=== PATIENT | female | born 1930 | race Caucasian/White ===

== ENCOUNTER 2018-11-06 18:52 | Inpatient (IN) | payer MEDICARE ==
[2018-11-06 19:52] LABS: #Lymphocytes 0.4 thou/uL (1.20-3.40); #Monocytes 0.6 thou/uL (0.11-0.59); #Neutrophils 4.5 thou/uL (1.40-6.50); %Basophils 0.1 % (0.0-1.0); %Eosinophils 0.6 % (0.0-10.0); %Lymphocytes 7.1 % (21.0-51.0); %Monocytes 10.1 % (0.0-10.0); %Neutrophils 82.1 % (42.0-75.0); Hemoglobin 10.5 g/dL (12.0-16.0); Mean Corpuscular HGB CONC 32.1 g/dL (32.0-36.0); Mean Corpuscular Hemoglobin 31.6 pg (27.0-31.0); Mean Corpuscular Volume 98.2 fL (78.0-98.0); Mean Platelet Volume 7.6 fL (7.4-10.4); Platelet Count 147 thou/uL (130-400); Red Blood Cell (RBC) Count 3.31 mill/uL (4.20-5.40); White Blood Cell (WBC) Count 5.5 thou/uL (4.8-10.8)
[2018-11-06 20:17] LABS: ALT (SGPT) 8 U/L (8-55); AST (SGOT) 11 U/L (5-34); Albumin 3.8 g/dL (3.4-4.8); Alkaline Phosphatase 103 U/L (40-150); Anion Gap 15 mmol/L (10-20); BUN (Urea Nitrogen) 25 mg/dL (9.8-20.1); Bilirubin, Total 0.5 mg/dL (0.2-1.2); Calc. Creatinine Clearance 0 mL/min (70-130); Calcium 9.4 mg/dL (7.8-10.44); Carbon Dioxide 31 mmol/L (23-31); Chloride 95 mmol/L (98-107); Estimated GFR-MDRD 15; Globulin 2.9 g/dL (2.4-3.5); Glucose 132 mg/dL (83-110); Protein, Total 6.7 g/dL (6.0-8.3); Sodium 138 mmol/L (136-145)
--- NOTE | 2018-11-06 20:25 | RAD ---
RIGHT KNEE FOUR VIEWS: 11/06/18 HISTORY: Knee pain. COMPARISON: None. FINDINGS: No significant joint effusion. Saturated appearance. Right total knee arthroplasty and total resurfa cing. There is sclerosis of the patella. Bones are demineralized. Mild vascular calcifications. IMPRESSION: No acute abnormality. POS: HOME
[2018-11-06 20:26] LABS: Potassium 2.9 mmol/L (3.5-5.1)
[2018-11-06 20:34] LABS: Bilirubin Small (Negative); Blood, Urine Large (Negative); Glucose, Urine (Dipstick) Negative (Negative); Leukocyte Moderate (Negative); Nitrite Negative (Negative); Protein, Urine (Dipstick) > or equal to 300 mg/dL (Neg-Trace); Urobilinogen 0.2 mg/dL (Less than 2)
[2018-11-06 20:41] LABS: Clarity Cloudy (Clear)
[2018-11-06 20:46] LABS: Bacteria/HPF 4+ HPF (None Seen); RBC/HPF 21-50 HPF (0-3); Squamous Epithelial 0-3 HPF (0-3); WBC/HPF Greater Than 50 HPF (0-3)
[2018-11-06] MEDS ORDERED: cefTRIAXone\\ROCEPHIN 2 GM VIAL ONE ×2 (21:00→21:58)
[2018-11-06] MEDS ORDERED: Acetaminophen 325 MG TAB PO PRN (22:04)
[2018-11-07 00:22] VITALS: BMI 21.2
[2018-11-07] MEDS: HYDROcodone/Acetaminophen 5/325 mg Tablet PO PRN ×4 (00:25→17:22)
--- NOTE | 2018-11-07 01:59 | HP ---
PRIMARY CARE PHYSICIAN: Dr. Ethan Templeton. CHIEF COMPLAINT: Weakness. HISTORY OF PRESENT ILLNESS: This is an 87-year-old female patient with a history of end-stage renal disease, on hemodialysis, who was dialyzed today, presents to the emergency department with worsening weakness and difficulty ambulating. The patient states she is usually able to walk around her house without much difficulty. She typically gets to feeling badly after her dialysis, but today was much worse. She presented to the emergency department for evaluation and was found to have a urinary tract infection. No signs of sepsis, but due to her weakness, poor p.o. intake, she is being admitted for further evaluation and treatment of urinary tract infection and weakness. PAST MEDICAL HISTORY: End-stage renal disease, hypertension, macular degeneration, hypercholesterolemia. PAST SURGICAL HISTORY: Appendectomy, AV fistula in 2015, tonsillectomy, a history of nephrectomy for unknown reasons, history of recurrent urinary tract infections. FAMILY HISTORY: Father with heart disease. Mother with diabetes. SOCIAL HISTORY: She lives at home with her sister who is elderly as well. Family states that she is having a harder time taking care of things at home even with her sister, more difficulty with activities of daily living. REVIEW OF SYSTEMS: As per the history of present illness. CONSTITUTIONAL: She denies any recent fevers, chills, or recent illness. HEENT: Denies headache, visual or hearing changes. CARDIAC: Denies chest pain, shortness of breath, or palpitations. PULMONARY: Denies cough or hemoptysis. GI: Positive nausea, occasional abdominal pain, history of chronic constipation due to chronic narcotic usage for her knee pain. : As per the history of present illness. She has had recent bladder infections over the past years. She denies hematuria. MUSCULOSKELETAL: Chronic knee pain, possibly hip pain as well. MEDICATIONS: Include; 1. Hardin 5/325 q.6 p.r.n. severe pain. 2. Icaps daily. 3. Stool softeners daily. 4. Omeprazole 20 mg daily. 5. RenaPlex-D daily. 6. Doxazosin 8 mg daily. 7. Amlodipine 10 mg daily. ALLERGIES: TO ASPIRIN AND NSAIDS. IMMUNIZATIONS: Pneumovax received. PHYSICAL EXAMINATION: VITAL SIGNS: She is afebrile. Pulse is regular. Respirations are not labored. GENERAL: She is awake and alert. No acute distress. Speech is clear. Mucosa is moist. NECK: Supple. HEART: Regular rate and rhythm. LUNGS: Clear. ABDOMEN: Soft, nontender, and nondistended. EXTREMITIES: With no edema. Scar in her right knee. Painful range of motion of her right knee. Positive for crepitus. Left arm with AV fistula with positive thrill. LABORATORY DATA: White blood cell count 5,500, hemoglobin and hematocrit 10.5 and 32.5 with macrocytic indices, platelets of 147. Sodium 138, potassium 2.9, chloride 95, CO2 of 31, BUN and creatinine 25 and 2.88 with a GFR of 15. Serum glucose of 132, calcium of 9.4, albumin of 3.8. Urinalysis was positive protein, positive blood, positive leukocyte esterase, positive bacteria. Knee x-ray showed the right total knee arthroplasty. Bones are demineralized. No acute finding. ASSESSMENT AND PLAN: This is an 87-year-old female with end-stage renal disease, now with increasing weakness, likely secondary to deconditioning and urinary tract infection. 1. Urinary tract infection. We will continue Rocephin, may switch to oral antibiotics tomorrow. 2. End-stage renal disease. We will continue dialysis as per Dr. Moore. 3. Chronic knee pain. Continue Hardin. We will initiate PT, OT evaluation. 4. Hypertension, appears to be stable on Norvasc and Cardura. 5. Chronic anemia secondary to chronic disease and kidney failure. 6. Hypokalemia. We will replete. 7. Increasing weakness. I will consult Case Management and obtain a rehab consult for placement possibilities. I will discuss further with family. 8. Code status. The patient desires DNR. We will follow through with that. Family agrees to those wishes. Job ID: [id number]
[2018-11-07 06:52] LABS: #Eosinphils 0.1 thou/uL (0.0-0.7); #Lymphocytes 0.6 thou/uL (1.20-3.40); #Monocytes 0.7 thou/uL (0.11-0.59); #Neutrophils 4.2 thou/uL (1.40-6.50); %Basophils 0.4 % (0.0-1.0); %Lymphocytes 11.3 % (21.0-51.0); %Monocytes 12.2 % (0.0-10.0); %Neutrophils 74.1 % (42.0-75.0); Mean Corpuscular HGB CONC 31.1 g/dL (32.0-36.0); Mean Corpuscular Hemoglobin 30.7 pg (27.0-31.0); Mean Corpuscular Volume 98.7 fL (78.0-98.0); Mean Platelet Volume 7.6 fL (7.4-10.4); Platelet Count 147 thou/uL (130-400); RBC Distribution Width 12.9 % (11.5-14.5); Red Blood Cell (RBC) Count 3.28 mill/uL (4.20-5.40); White Blood Cell (WBC) Count 5.7 thou/uL (4.8-10.8)
[2018-11-07 07:12] LABS: ALT (SGPT) Less than 7 U/L (8-55); AST (SGOT) 11 U/L (5-34); Albumin 3.3 g/dL (3.4-4.8); Alkaline Phosphatase 87 U/L (40-150); Anion Gap 13 mmol/L (10-20); BUN (Urea Nitrogen) 29 mg/dL (9.8-20.1); Bilirubin, Total 0.5 mg/dL (0.2-1.2); Calc. Creatinine Clearance 11 mL/min (70-130); Calcium 8.8 mg/dL (7.8-10.44); Carbon Dioxide 30 mmol/L (23-31); Chloride 96 mmol/L (98-107); Estimated GFR-MDRD 13; Globulin 2.4 g/dL (2.4-3.5); Glucose 89 mg/dL (83-110); Potassium 3.1 mmol/L (3.5-5.1); Protein, Total 5.7 g/dL (6.0-8.3); Sodium 136 mmol/L (136-145)
[2018-11-07] MEDS ORDERED: Potassium Chloride 20 MEQ TAB PO SCH (08:00)
[2018-11-07] MEDS: Folic Acid/Vit B Comp W-C PO SCH (08:35)
[2018-11-07] MEDS: Docusate 100 MG CAP PO SCH (08:35)
[2018-11-07] MEDS: Amlodipine 10 MG TAB PO SCH (08:35)
[2018-11-07] MEDS: Doxazosin Mesylate 4 MG TAB PO SCH (09:55)
--- NOTE | 2018-11-07 10:32 | CON ---
DATE OF CONSULTATION: HISTORY OF PRESENT ILLNESS: Ms. Willis is an 87-year-old white female with ESRD and was admitted for generalized malaise/weakness. After dialysis on that day, the patient lost energy and could hardly move about. For this reason, she was sent to the ER and was admitted for further management. Consultation for rehab is being considered at the present time. We are now being consulted for maintenance hemodialysis. REVIEW OF SYSTEMS: Positive for generalized malaise. Positive for chronic joint pains. No nausea. No vomiting. No diarrhea. No hematochezia. No melena. No hematemesis. No headache. No diplopia. No syncopal episode. No fever or chills. No shortness of breath or chest pain. MEDICATIONS: Currently on; 1. Amlodipine 10 mg daily. 2. Docusate 100 mg p.o. daily. 3. Cardura 8 mg at bedtime. 4. Hydrocodone 5/325 q.6 p.r.n. 5. Protonix 40 mg tablet once a day. 6. Status post KCl. PAST MEDICAL HISTORY: 1. DJD. 2. 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 3. Long-standing hypertension, status post gastritis. 4. History of macular degeneration. PAST SURGICAL HISTORY: Status post AV fistula placement, status post cuffed hemodialysis catheter placement, status post appendectomy, status post upper GI endoscopy, status post right knee replacement, and status post right nephrectomy. SOCIAL HISTORY: The patient lives in [place] with her sister. She is , 2 children. No history of smoking. No alcohol use. No IV drug abuse. Status post blood transfusion. 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 Education, 7th grade. ALLERGIES: NO KNOWN DRUG ALLERGIES. TRAUMA: None. IMMUNIZATIONS: Up-to-date. HOSPITALIZATIONS: Please see past medical history. FAMILY HISTORY: No family history of ESRD. PHYSICAL EXAMINATION: VITAL SIGNS: Blood pressure is noted at 113/65, heart rate 68, respiratory rate 14, temperature 97.8, and pulse ox 93%. GENERAL: Noted to be awake, alert, supine, lethargic, not in overt distress. SKIN: Decreased turgor. HEENT: Pinkish conjunctivae. Anicteric sclerae. NECK: No neck mass. No carotid bruits. No JVD. CHEST: No deformities. LUNGS: Clear breath sounds. No wheezing. No crackles. HEART: Normal sinus rhythm. No murmurs. No gallops. No rubs. ABDOMEN: Globular, soft, and nontender. No masses. EXTREMITIES: No edema. No deformities. MEDICATIONS: Medications of November 07, 2018, reviewed. LABORATORY DATA: Laboratories of November 07, 2018; white count 5.7, hemoglobin 10. Sodium 136, potassium 3.1, chloride 96, carbon dioxide 30, BUN 29, creatinine 3.26, calcium 8.8, AST 11, ALT 7, and albumin 3.3. ASSESSMENT AND PLAN: 1. End-stage renale disease, stable. We will continue current hemodialysis regimen of Monday, , and Monday. Review of the last Kt/V suggest that the patient is adequately dialyzed with the current dialysis regimen. Agree with current management. 2. Generalized malaise - for rehab placement/consultation. I agree with current management. Job ID: [id number]
[2018-11-07] MEDS ORDERED: Magnesium 2 GM/50 ML 2 GM in Premix Bag 1 BAG IVPB SCH (14:00)
[2018-11-07] MEDS ORDERED: Polyethylene Glycol 3350 17 GM Packet PO PRN (14:59)
[2018-11-07] MEDS ORDERED: Polyethylene Glycol 3350 17 GM Packet PO SCH (15:00)
--- NOTE | 2018-11-07 16:01 | RAD ---
Exam: Chest 2 views HISTORY:Crackles Comparison: 04/25/2018 FINDINGS: Lungs: Hyperinflated Cardiac silhouette:Enlarged. Retrocardiac air density is indicative of a moderate to large hiatal her gavin Pulmonary vessels: Normal Pleural Spaces: Clear Pneumothorax: None There is vascular calcification. Ectasia and tortuosity of the aorta. Osseous abnormalities: None of acuity. IMPRESSION: COPD Moderate to large hiatal hernia
[2018-11-07] MEDS: Potassium Chloride 20 MEQ TAB PO SCH (17:22)
[2018-11-07] MEDS: cefTRIAXone\\ROCEPHIN 2 GM in Sodium Chloride 0.9% 100 ML IVPB SCH (20:35)
--- NOTE | 2018-11-08 04:17 | PRG ---
DATE OF SERVICE: 11/07/2018 HISTORY OF PRESENT ILLNESS: Patient remains somewhat fatigued, makes minimal urine, she is on hemodialysis and does have urinary frequency and dysuria when she does produce small amount of urine per day. Verbalized understanding regarding UTI findings. Tolerated Rocephin well so far. Patient has hypokalemia, but does not report any palpitations or lower extremity cramping. Currently 1/2 cultures shows staphylococcal, identification pending. Urine culture currently showing E coli. Presumed sensitivities pending. Patient denies significant cough, however, does report constipation. Has not had a bowel movement several days. Still passing flatus. Decreased appetite. No emesis. Review of vital signs; temperature of 98.3, pulse of 61, respiratory rate 16, oxygen saturation of 95% on room air, and blood pressure 126/65. LABORATORY WORK: White blood cell count of 5.7, hemoglobin 10.0. Potassium on admit of 2.9, slightly improved to 3.1; creatinine of 3.2; glucose of 89. PHYSICAL EXAMINATION: GENERAL: Patient is alert and oriented. No acute distress. HEENT: Head is normocephalic and atraumatic. Extraocular movements are intact. Sclerae white. Oral mucosa is moist. NECK: Supple. HEART: Regular rate and rhythm at the time of my exam. Systolic murmur is auscultated. LUNGS: With bilateral crackles to bases, could represent mucous plugging. No rhonchi, rales, or wheezes. Patient with good air movement. Good chest expansion. ABDOMEN: Soft, nontender. Positive bowel sounds throughout. EXTREMITIES: Lower extremities, without cyanosis or edema. ASSESSMENT/PLAN: End-stage renal disease, on hemodialysis; bacteremia; urinary tract infection; severe hypokalemia, transitioning the patient to inpatient status; anemia of chronic disease, continued on dialysis, looking to seek for placement given patient's downturn in energy and mobility. Working with therapy services. Clinicals are pending with Case Management. We will continue to replace potassium and follow up on lab work in a.m. We will follow up on identification. At this point in time, we will continue Rocephin. Unclear if Staph is contaminant yet. Patient remains afebrile otherwise. If any fevers occur, we will escalate antibiotic coverage. Hope to get placement prior to weekend. Initiated laxative, MiraLAX regarding patient's constipation. Job ID: [id number]
[2018-11-08 07:04] LABS: ALT (SGPT) 8 U/L (8-55); AST (SGOT) 12 U/L (5-34); Albumin 3.1 g/dL (3.4-4.8); Alkaline Phosphatase 82 U/L (40-150); Anion Gap 15 mmol/L (10-20); BUN (Urea Nitrogen) 47 mg/dL (9.8-20.1); Bilirubin, Total 0.4 mg/dL (0.2-1.2); Calc. Creatinine Clearance 9 mL/min (70-130); Calcium 8.7 mg/dL (7.8-10.44); Carbon Dioxide 28 mmol/L (23-31); Chloride 99 mmol/L (98-107); Estimated GFR-MDRD 11; Globulin 2.6 g/dL (2.4-3.5); Glucose 88 mg/dL (83-110); Potassium 3.5 mmol/L (3.5-5.1); Protein, Total 5.7 g/dL (6.0-8.3); Sodium 138 mmol/L (136-145)
[2018-11-08] MEDS ORDERED: Glycerin Adult Supp. (12 ct jar) PR SCH (07:45)
[2018-11-08] MEDS: HYDROcodone/Acetaminophen 5/325 mg Tablet PO PRN ×4 (08:03→21:23)
[2018-11-08] MEDS ORDERED: EPOETIN ALFA-EPBX (ESRD) 4,000 UNIT/ML VIAL SC SCH (08:30)
--- NOTE | 2018-11-08 08:53 | PRG ---
DATE OF SERVICE: 11/08/2018 SERVICE: Renal Medicine. SUBJECTIVE: Ms. Willis is an 87-year-old white female with ESRD, was admitted for generalized malaise. This morning, she is undergoing dialysis. She is requesting to shorten her treatment. She is complaining of diffuse joint pains. The patient denies any chest pain or shortness of breath. OBJECTIVE: VITAL SIGNS: Blood pressure 101/54, heart rate 60, respiratory rate 16, temperature 98, and pulse ox 95%. GENERAL: Awake, alert, comfortable, not in overt distress. SKIN: Adequate turgor. HEENT: Slightly pale conjunctivae. Anicteric sclerae. NECK: No neck mass. No carotid bruits. No JVD. CHEST: No deformities. LUNGS: Clear breath sounds. HEART: Normal sinus rhythm. No murmur. No gallops. No rubs. ABDOMEN: Globular, soft, and nontender. No masses. EXTREMITIES: No edema. No deformities. MEDICATIONS: Medications of November 08, 2018, was reviewed. LABORATORY DATA: Laboratories of November 07, 2018, hemoglobin 10. On November 08, 2018; sodium 138, potassium 3.5, chloride 99, carbon dioxide 28, BUN 47, creatinine 3.75, calcium 8.7, and albumin 3.1. ASSESSMENT AND PLAN: 1. Hypoalbuminemia. Start Nepro one can b.i.d. 2. Borderline anemia - since the patient is symptomatic, we will restart Epogen 7500 units subcu every week. 3. End-stage renal disease, stable, continuing Monday, , and Monday dialysis regimen. Fluid removal only as tolerated by the patient. No changes will be made with the current dialysis regimen. Job ID: [id number]
[2018-11-08] MEDS: Folic Acid/Vit B Comp W-C PO SCH (11:01)
[2018-11-08] MEDS: Docusate 100 MG CAP PO SCH (11:02)
[2018-11-08] MEDS: Potassium Chloride 20 MEQ TAB PO SCH (11:02)
[2018-11-08] MEDS: Polyethylene Glycol 3350 17 GM Packet PO SCH ×2 (11:03→21:22)
[2018-11-08] MEDS: Amlodipine 10 MG TAB PO SCH (12:26)
[2018-11-08] MEDS: Doxazosin Mesylate 4 MG TAB PO SCH (12:27)
--- NOTE | 2018-11-08 18:17 | PRG ---
DATE OF SERVICE: 11/08/2018 HISTORY OF PRESENT ILLNESS: The patient states she has some worsening constipation, not responsive to MiraLAX and glycerin suppository x1. Still passing flatus. Verbalizes understanding regarding gram-positive bacteremia. Has no fevers. Simply feels fatigued, however, she is continued on hemodialysis if not feel good on days of dialysis. Continued deconditioning and anemia of chronic disease remain present. The patient's potassium is slowly improving. The patient denies any chest pain or extremity cramps. Tolerating Rocephin for UTI well. OBJECTIVE: VITAL SIGNS: Temperature of 97.8, pulse of 84, respiratory rate of 16, oxygen saturation 96% on room air, and blood pressure of 103/59. GENERAL: The patient is alert and oriented, in no acute distress. HEENT: Head is normocephalic and atraumatic. Extraocular movements are intact. Sclerae white. Oral mucosa is moist. HEART: Systolic murmurs heard throughout. LUNGS: Clear to auscultation bilaterally. No rubs or wheezes. ABDOMEN: Soft and nontender with positive bowel sounds throughout. EXTREMITIES: Lower extremities without cyanosis or edema. The patient is alert and oriented x3. No focal deficits. Speech is normal. LABORATORY DATA: White blood cell count of 5.7, hemoglobin 10.0. Potassium 3.5, sodium 138, creatinine of 3.75. AST 12, ALT of 8. Microbiology showed E. coli sensitive to cephalosporins, resistant to Bactrim and quinolones, coagulase-negative Staph identification still pending. ASSESSMENT AND PLAN: Severe hypokalemia, currently resolved. End-stage renal disease, on hemodialysis, continuing dialysis. Gram-positive bacteremia, awaiting cultures. Urinary tract infection, Escherichia coli sensitive to cephalosporins, continuing Rocephin. Constipation, increasing MiraLAX twice a day and continuing glycerin suppositories p.r.n. The patient's anemia of chronic disease is holding steady. Deconditioning, currently awaiting inpatient rehab placement. We will follow up once placement has been achieved and discharge. Job ID: [id number]
[2018-11-08] MEDS: cefTRIAXone\\ROCEPHIN 2 GM in Sodium Chloride 0.9% 100 ML IVPB SCH (21:22)
[2018-11-09] MEDS: HYDROcodone/Acetaminophen 5/325 mg Tablet PO PRN ×4 (01:47→22:19)
[2018-11-09] MEDS: Docusate 100 MG CAP PO SCH (08:25)
[2018-11-09] MEDS: Amlodipine 10 MG TAB PO SCH (08:25)
[2018-11-09] MEDS: Polyethylene Glycol 3350 17 GM Packet PO SCH (08:25)
[2018-11-09] MEDS: Folic Acid/Vit B Comp W-C PO SCH (08:25)
[2018-11-09] MEDS: Doxazosin Mesylate 4 MG TAB PO SCH (08:25)
--- NOTE | 2018-11-09 18:00 | PRG ---
DATE OF SERVICE: 11/09/2018 HISTORY OF PRESENT ILLNESS: The patient successfully had several bowel movements following suppository and MiraLAX as good relief of abdomen pressure. The patient was not having emesis. Remains with severe deconditioning, only able to take a couple of steps before. The patient had to sit back down with physical therapy, has rehab placement pending being treated for UTI, E. coli with Rocephin. The patient has baseline of end-stage renal disease, on hemodialysis Monday, , and Monday, currently stable. The patient's potassium has been well replaced. No chest pain is reported including with the patient's anemia of chronic disease. No shortness of breath at baseline. No fevers reported with gram-positive bacteremia, however, unable to get identified with current culture reports. OBJECTIVE: VITAL SIGNS: Temperature 97.8, pulse of 70, respiratory rate of 18, oxygen saturation 96% on room air, and blood pressure 100/62. GENERAL: The patient is alert and oriented, in no acute distress. HEENT: Head is normocephalic and atraumatic. Extraocular movements are intact. Sclerae white. Oral mucosa is moist. NECK: Supple. HEART: Regular rate and rhythm at time of exam. No murmurs auscultated. LUNGS: Clear to auscultation bilaterally. No rubs or wheezes. ABDOMEN: Soft and nontender. Positive bowel sounds throughout. EXTREMITIES: Lower extremities without cyanosis or edema. The patient with 3/5 to 4/5 strength on extremities tested. NEUROLOGIC: However, fatigues easily. Alert and oriented x3. No focal deficits. Speech is normal. ASSESSMENT AND PLAN: End-stage renal disease, on hemodialysis. Deconditioning, gram positive bacteremia. Urinary tract infection secondary to Escherichia coli. Constipation, resolved. Anemia of chronic disease, remains currently on Epogen. Waiting placement. Continuing dialysis. Continued on antibiotics. We will follow up repeat blood culture if any fevers. Job ID: [id number]
[2018-11-09] MEDS: cefTRIAXone\\ROCEPHIN 2 GM in Sodium Chloride 0.9% 100 ML IVPB SCH (20:23)
[2018-11-10] MEDS: HYDROcodone/Acetaminophen 5/325 mg Tablet PO PRN ×4 (04:18→23:37)
[2018-11-10 05:21] LABS: #Basophils 0.1 thou/uL (0.0-0.2); #Eosinphils 0.4 thou/uL (0.0-0.7); #Lymphocytes 1.5 thou/uL (1.20-3.40); #Monocytes 0.5 thou/uL (0.11-0.59); #Neutrophils 2.6 thou/uL (1.40-6.50); %Eosinophils 7.9 % (0.0-10.0); %Lymphocytes 30.1 % (21.0-51.0); %Monocytes 9.6 % (0.0-10.0); %Neutrophils 51.3 % (42.0-75.0); Hemoglobin 9.8 g/dL (12.0-16.0); Mean Corpuscular HGB CONC 31.5 g/dL (32.0-36.0); Mean Corpuscular Hemoglobin 30.8 pg (27.0-31.0); Mean Corpuscular Volume 97.7 fL (78.0-98.0); Mean Platelet Volume 7.2 fL (7.4-10.4); Platelet Count 180 thou/uL (130-400); RBC Distribution Width 12.8 % (11.5-14.5); Red Blood Cell (RBC) Count 3.17 mill/uL (4.20-5.40); White Blood Cell (WBC) Count 5.1 thou/uL (4.8-10.8)
[2018-11-10 05:39] LABS: ALT (SGPT) 10 U/L (8-55); AST (SGOT) 14 U/L (5-34); Albumin 3.1 g/dL (3.4-4.8); Alkaline Phosphatase 80 U/L (40-150); Anion Gap 11 mmol/L (10-20); BUN (Urea Nitrogen) 39 mg/dL (9.8-20.1); Bilirubin, Total 0.4 mg/dL (0.2-1.2); Calc. Creatinine Clearance 11 mL/min (70-130); Calcium 8.8 mg/dL (7.8-10.44); Carbon Dioxide 30 mmol/L (23-31); Chloride 99 mmol/L (98-107); Estimated GFR-MDRD 14; Globulin 2.3 g/dL (2.4-3.5); Glucose 84 mg/dL (83-110); Potassium 4.1 mmol/L (3.5-5.1); Protein, Total 5.4 g/dL (6.0-8.3); Sodium 136 mmol/L (136-145)
[2018-11-10] MEDS: Docusate 100 MG CAP PO SCH (08:49)
[2018-11-10] MEDS: Folic Acid/Vit B Comp W-C PO SCH (08:50)
--- NOTE | 2018-11-10 10:00 | PRG ---
DATE OF SERVICE: 11/10/2018 SUBJECTIVE: Ms. Willis is an 87-year-old white female with ESRD and admitted for UTI/E coli. Currently, on IV antibiotics. No new complaints today. She is undergoing hemodialysis. Fluid removal is being tolerated. No complaints of chest pain or shortness of breath. She feels better. OBJECTIVE: VITAL SIGNS: Blood pressure 111/62, heart rate 67, respiratory rate 18, temperature 97.5, and pulse ox 95%. GENERAL: Awake, alert, and comfortable, not in overt distress. SKIN: Adequate turgor. HEENT: Slightly pale conjunctivae. Anicteric sclerae. NECK: No neck mass. No carotid bruits. No JVD. CHEST: No deformities. LUNGS: Clear breath sounds. No wheezing. No crackles. HEART: Normal sinus rhythm. No murmur. No gallops. No rubs. ABDOMEN: Globular, soft, and nontender. No masses. EXTREMITIES: No edema. No deformities. MEDICATIONS: Medications of November 10, 2018 was reviewed. LABORATORY DATA: Laboratories of November 10, 2018; white count 5.1 and hemoglobin 9.8. Sodium 136, potassium 4.1, chloride 99, carbon dioxide 30, BUN 39, creatinine 3.1, and calcium 8.8. AST 14 and ALT 10. ASSESSMENT AND PLAN: 1. End-stage renal disease, stable, tolerating current hemodialysis regimen. Continue dialysis for Monday, , and Monday. Fluid removal only as tolerated. 2. Anemia-on weekly Epogen. 3. Urinary tract infection, currently on IV antibiotics. Overall, the patient is doing well. Agree with current management. Job ID: [id number]
[2018-11-10] MEDS: Doxazosin Mesylate 4 MG TAB PO SCH (16:56)
[2018-11-10] MEDS: Amlodipine 10 MG TAB PO SCH (16:56)
[2018-11-10] MEDS: cefTRIAXone\\ROCEPHIN 2 GM in Sodium Chloride 0.9% 100 ML IVPB SCH (20:19)
[2018-11-11] MEDS: HYDROcodone/Acetaminophen 5/325 mg Tablet PO PRN ×3 (04:16→18:39)
[2018-11-11] MEDS: Docusate 100 MG CAP PO SCH (08:35)
[2018-11-11] MEDS: Doxazosin Mesylate 4 MG TAB PO SCH (08:35)
[2018-11-11] MEDS: Amlodipine 10 MG TAB PO SCH (08:36)
[2018-11-11] MEDS: Folic Acid/Vit B Comp W-C PO SCH (08:37)
--- NOTE | 2018-11-11 10:45 | PRG ---
DATE OF SERVICE: 11/11/2018 SUBJECTIVE: Today, she has no complaints. OBJECTIVE: VITAL SIGNS: She is afebrile. BP is 116/66 and pulse 63. Exam is essentially unchanged. NECK: No JVD. No bruits in her neck. LUNGS: Clear to auscultation bilaterally. HEART: S1 and S2 with no rubs, murmurs, or gallops. ABDOMEN: Soft and nontender. No masses. LABORATORY DATA: No new labs for 11/11. PLAN: Continue IV antibiotics. She is going to stay in the hospital. Dr. Gomez will be back tomorrow. Eventually, she will be able to be discharged. Job ID: [id number]
--- NOTE | 2018-11-11 10:49 | PRG ---
DATE OF SERVICE: 11/10/2018 SUBJECTIVE: Ms. Willis is an 87-year-old female, patient of Dr. Gomez. On weekend coverage, I am seeing the patient, who earlier was unavailable as she was at dialysis. She is admitted for an E coli urinary tract infection, on antibiotics, a little bit weak after dialysis, but otherwise feeling better than when she came into the hospital. OBJECTIVE: VITAL SIGNS: Stable. She is afebrile. Blood pressure is 111/62. GENERAL: She is awake, alert, and comfortable. No acute distress. NECK: Supple. No JVD. No bruits. No thyromegaly. LUNGS: Clear to auscultation. No rales, rhonchi, or wheezes. HEART: S1 and S2. No rubs, murmurs, or gallops, ABDOMEN: Soft, nontender. Bowel sounds are hypoactive. LABORATORY DATA: White count is 5.1, hemoglobin is 10 and 30. Sodium 136, potassium 4.1, chloride 99, bicarb 30, BUN 39, and creatinine 3.1. ASSESSMENT: Escherichia coli urinary tract infection. We will continue on IV antibiotics. She has end-stage renal disease, currently on hemodialysis, Dr. Oscar abel. Her anemia is essentially stable. She is receiving Epogen weekly injections for that. Job ID: [id number]
[2018-11-11] MEDS: cefTRIAXone\\ROCEPHIN 2 GM in Sodium Chloride 0.9% 100 ML IVPB SCH (20:31)
[2018-11-12] MEDS: HYDROcodone/Acetaminophen 5/325 mg Tablet PO PRN ×2 (04:28→13:01)
[2018-11-12] MEDS: Amlodipine 10 MG TAB PO SCH (08:08)
[2018-11-12] MEDS: Folic Acid/Vit B Comp W-C PO SCH (08:08)
[2018-11-12] MEDS: Docusate 100 MG CAP PO SCH (08:10)
[2018-11-12] MEDS: Doxazosin Mesylate 4 MG TAB PO SCH (08:10)
--- NOTE | 2018-11-12 08:44 | PRG ---
DATE OF SERVICE: 11/12/2018 SUBJECTIVE: Ms. Willis is resting well today. She has no further complaints. OBJECTIVE: VITAL SIGNS: Temperature 97.5, pulse 56, respirations 16, O2 sats 95%, and blood pressure 104/60. LUNGS: Clear to auscultation. HEART: Reveals a regular rate and rhythm without murmurs, gallops, or rubs. ABDOMEN: Soft and nontender. Bowel sounds are present and active. No hepatosplenomegaly is noted. LABORATORY DATA: Urine culture is positive for E coli. Blood cultures positive for coagulase-negative Staphylococcus, which is felt to be a contaminant. IMPRESSION: The patient has had urinary tract infections. She has generalized weakness. PLAN: The patient in my opinion can be discharged soon. There is some concern about whether she should be placed in rehab. We will try to find this out. Job ID: [id number]
[2018-11-12 15:19] VITALS: BP 103/56; TEMP 98.2
[2018-11-12] MEDS ORDERED: Nitrofurantoin Monohyd/M-Cryst 100 MG CAP PO SCH (21:00)
== END 2018-11-12 18:45 | DRG 689 ==
LOC: ERS 18:52 → SJJU 22:52 → OBSVTOIN 11-07 13:49
PROVIDERS: ADMIT Family Medicine; ATTEND Family Medicine
PROC: 5A1D70Z Performance of Urinary Filtration, Intermittent, Less than 6 Hours Per Day (ICD-10-PCS; principal; 2018-11-10)
PROC: 5A1D70Z Performance of Urinary Filtration, Intermittent, Less than 6 Hours Per Day (ICD-10-PCS; 2018-11-10)
DX: N39.0 Urinary tract infection, site not specified (principal); N18.6 End stage renal disease; I12.0 Hypertensive chronic kidney disease with stage 5 chronic kidney disease or end stage renal disease; M25.561 Pain in right knee; G89.29 Other chronic pain; D63.1 Anemia in chronic kidney disease; Z66 Do not resuscitate; E87.6 Hypokalemia; K59.03 Drug induced constipation; H35.30 Unspecified macular degeneration; T40.2X5A Adverse effect of other opioids, initial encounter; Z96.652 Presence of left artificial knee joint; E88.09 Other disorders of plasma-protein metabolism, not elsewhere classified; B96.20 Unspecified Escherichia coli [E. coli] as the cause of diseases classified elsewhere; Z99.2 Dependence on renal dialysis; Z90.49 Acquired absence of other specified parts of digestive tract; Z90.89 Acquired absence of other organs; Z79.899 Other long term (current) drug therapy; Z88.6 Allergy status to analgesic agent; Z88.8 Allergy status to other drugs, medicaments and biological substances; Z87.440 Personal history of urinary (tract) infections
CPT/HCPCS: 36415; 51701; 71046; 80053; 81003; 81015; 85025; 87040; 87077; 87086; 87149; 87186; 96365; A4353; J0696; J3475; J3490; Q5105

== ENCOUNTER 2019-05-15 07:07 | Day surgery (SDC) | payer MEDICARE ==
[2019-05-14 10:55] VITALS: BMI 20.2
--- NOTE | 2019-05-14 12:30 | HP ---
HISTORY OF PRESENT ILLNESS: Rika Willis is an 88-year-old, dialyzes at [facility] Monday, , and Monday. She is accompanied by her daughter and her sister. The patient has had a right breast biopsy upper midline for benign disease. She has developed a left breast mass. This was found by her daughter during helping her bath. The patient had a mammogram performed at [facility] in [place] on 04/08/2019. This is unremarkable with benign microcalcifications, but did have a concerning suspicious mass of left breast at 12 o'clock, 4 cm. FAMILY HISTORY: Significant that her sister had breast cancer. She underwent treatment in [place]. Otherwise family history noncontributory. ALLERGIES: NONE. SOCIAL HISTORY: Tobacco, none. Alcohol, none. PAST SURGICAL HISTORY: Nephrectomy right 1973, dialysis access 2014 that I performed a dialysis catheter, left arm fistula and subsequent 2014 basilic vein transposition fistula. She had appendectomy at younger age. She had an EGD in the past. Has never had a colonoscopy. MEDICATIONS: Colace, Prilosec, prednisolone eyedrops, calcium acetate, amlodipine 2.5 mg daily, doxazosin 8 mg once a day, and hydrocodone p.r.n. pain 5/325 as noted above. PAST MEDICAL HISTORY: End-stage renal disease, on maintenance dialysis Monday, , and Monday, followed by Dr. Moore; hypertension; elevated cholesterol; macular degeneration. REVIEW OF SYSTEMS: Ten-point noncontributory otherwise. PHYSICAL EXAMINATION: VITAL SIGNS: Blood pressure 129/59, pulse 76, temperature 98.6 degrees, weight 138 pounds and height 72 inches. HEAD, EARS, EYES, NOSE AND THROAT: Unremarkable. LUNGS: Clear to auscultation. CARDIAC: Regular rate and rhythm without murmur or gallop. ABDOMEN: Soft and nontender. EXTREMITIES: Mild edema of lower extremities. Left arm upper arm basilic vein transposition fistula good thrill and bruit. AXILLA: Bilaterally without masses, without lymphadenopathy. BREASTS: Right breast, nipple and areola are normal without nipple retraction and without masses. Left breast reveals nipple retraction and a 4 cm mobile firm slightly irregular mass, upper midline, left breast. ASSESSMENT/PLAN: 1. Left breast mass, suspicious for malignancy. After informed consent, core biopsies and alcohol prep performed in the office. She will return to see me later this week for biopsy results. We will obtain appointment with Oncology for further evaluation and discussion. We will present her to the Cancer Clinic. Await hormone receptors and biopsy reports. 2. End-stage renal disease, on maintenance dialysis. 3. Hypertension. 4. Elevated cholesterol. Job ID: [id number]
--- NOTE | 2019-05-14 12:32 | HP ---
HISTORY OF PRESENT ILLNESS: Rika Willis is an 88-year-old female, dialyzed Monday, , Monday at [facility]. She has developed a large left breast mass, upper outer quadrant distorting nipple areola somewhat, undergoing biopsy revealing NM receptor positive, HER-2 negative, Ki-67 low 11.9%, estrogen receptor positive, seen by Dr. Storm. Options given and she prefers left mastectomy planning the week after next. Family understands risks and benefits. We will plan this as an outpatient. MEDICATIONS: 1. Stool softeners. 2. Omeprazole. 3. Calcium acetate. 4. Amlodipine 2.5 mg daily. 5. Doxazosin 8 mg daily. 6. Hydrocodone 5 p.r.n. PAST MEDICAL HISTORY: End-stage renal disease, on maintenance dialysis Monday, , Monday, [facility], history of nephrectomy, hypertension, elevated cholesterol, macular degeneration. PAST SURGICAL HISTORY: Appendectomy, nephrectomy, tonsillectomy, AV fistula, hemodialysis catheter, 09/17/2014, left arm fistula, left arm October 2014, left breast biopsy recently, April 08, 2019. FAMILY HISTORY: Heart disease, otherwise noncontributory. The patient is ambulatory, independent. Family is with her. REVIEW OF SYSTEMS: Noncontributory. TOBACCO: None. ALCOHOL: None. PHYSICAL EXAMINATION: VITAL SIGNS: Weight 133 pounds, height 72 inches, blood pressure 113/54, pulse 63, temperature 99.3 degrees. HEAD, EARS, EYES, NOSE, AND THROAT: Unremarkable. LUNGS: Clear to auscultation. CARDIAC: Regular rate and rhythm. No murmur or gallop. ABDOMEN: Soft and nontender. EXTREMITIES: Unremarkable. Left upper arm dialysis fistula. Good thrill and bruit. BREASTS: Left breast mass as described, 4 cm, mobile. ASSESSMENT AND PLAN: Left breast cancer. PLAN: Mastectomy outpatient, lymphoscintigraphy of sentinel node. They understand the risks and benefits and consents. Job ID: [id number]
[2019-05-15] MEDS ORDERED: Famotidine/PF 20 mg/2ml Vial ONE (08:15)
[2019-05-15] MEDS ORDERED: Ondansetron PF 4 MG/2 ML Vial ONE ×3 (08:15→12:34)
[2019-05-15] MEDS ORDERED: Fentanyl 100 MCG/2 ML VIAL ONE ×3 (08:15→11:27)
[2019-05-15] MEDS ORDERED: Lidocaine 1% w/Epinephrine 1:100K 20 ML VIAL ONE (08:16)
[2019-05-15] MEDS ORDERED: Isosulfan Blue 50 MG/5 ML VIAL ONE (08:16)
[2019-05-15] MEDS ORDERED: Bupivacaine PF 0.5% 30 ML VIAL ONE (08:16)
[2019-05-15] MEDS ORDERED: Acetaminophen 500 MG TAB ONE (08:55)
[2019-05-15] MEDS ORDERED: Ketorolac Tromethamine 30 MG/ML VIAL ONE (08:55)
[2019-05-15 09:03] LABS: #Eosinphils 0.1 thou/uL (0.0-0.7); #Lymphocytes 0.8 thou/uL (1.20-3.40); #Monocytes 0.3 thou/uL (0.11-0.59); #Neutrophils 4.1 thou/uL (1.40-6.50); %Basophils 0.6 % (0.0-1.0); %Eosinophils 2.5 % (0.0-10.0); %Lymphocytes 15.2 % (21.0-51.0); %Neutrophils 75.7 % (42.0-75.0); Hemoglobin 11.1 g/dL (12.0-16.0); Mean Corpuscular HGB CONC 31.6 g/dL (32.0-36.0); Mean Corpuscular Hemoglobin 31.5 pg (27.0-31.0); Mean Corpuscular Volume 99.4 fL (78.0-98.0); Mean Platelet Volume 8.5 fL (7.4-10.4); Platelet Count 150 thou/uL (130-400); RBC Distribution Width 13.8 % (11.5-14.5); Red Blood Cell (RBC) Count 3.54 mill/uL (4.20-5.40); White Blood Cell (WBC) Count 5.4 thou/uL (4.8-10.8)
[2019-05-15 09:16] LABS: Anion Gap 16 mmol/L (10-20); BUN (Urea Nitrogen) 44 mg/dL (9.8-20.1); Calc. Creatinine Clearance 11 mL/min (70-130); Calcium 9.2 mg/dL (7.8-10.44); Carbon Dioxide 25 mmol/L (23-31); Chloride 102 mmol/L (98-107); Estimated GFR-MDRD 13; Glucose 100 mg/dL (83-110); Potassium 3.8 mmol/L (3.5-5.1); Sodium 139 mmol/L (136-145)
--- NOTE | 2019-05-15 10:13 | NM ---
LYMPHOSCINTIGRAPHY: INDICATIONS: Malignant neoplasm, left breast, lymphoid and areolar. The patient presents for lymphoscintigraphy prior to surgery. TECHNIQUE: Sulfur colloid 100 mcg was injected subcutaneously in the periareolar region at the 12 o'clock, 3 o'c lock, 6 o'clock and 9 o'clock positions. FINDINGS: Subsequent imaging after massage at 15 minutes revealed activity in the periareolar region, at the si te of the injection. A sentinel lymph node shows activity in the left axilla. There is another smaller lymph node in the l eft axilla, producing less activity. The most prominent node is marked with a skin marker. IMPRESSION: [place] node identification with lymphoscintigraphy. POS: ANDRES
--- NOTE | 2019-05-15 10:23 | RAD ---
CHEST ONE VIEW: HISTORY: Preop. COMPARISON: 11/07/2018 FINDINGS: The lungs are hyperinflated. There is abnormal notching along the inferior margin of the right ga l neck. No confluent air space consolidation, pneumothorax or effusion. The aortic contour is ectatic . Moderate sliding hiatal hernia. IMPRESSION: 1. Chronic findings. No acute abnormality. 2. Abnormal notching in the right humeral neck. Dedicated shoulder radiographs are recommended. POS: [facility]
[2019-05-15] MEDS ORDERED: HYDROcodone/Acetaminophen 5/325 mg Tablet ONE (11:26)
[2019-05-15] MEDS ORDERED: ePHEDrine/0.9% NaCl/PF SYRINGE 50 mg/10 ml ONE (12:34)
[2019-05-15] MEDS ORDERED: Metoclopramide HCl 10 MG/2 ML VIAL ONE (12:34)
[2019-05-15] MEDS ORDERED: Dexamethasone 20 MG/5 ML VIAL ONE (12:34)
[2019-05-15] MEDS ORDERED: Lidocaine 1% PF 5 ML VIAL ONE (12:34)
[2019-05-15] MEDS ORDERED: PROPOFOL 200 MG/20 ML VIAL ONE (12:34)
--- NOTE | 2019-05-15 14:20 | OP ---
DATE OF PROCEDURE: 05/15/2019 PREOPERATIVE DIAGNOSES: Left breast cancer, end-stage renal disease. POSTOPERATIVE DIAGNOSES: Left breast cancer, end-stage renal disease. Negative touch prep. PROCEDURE PERFORMED: 1. Left simple mastectomy, negative sentinel node. 2. Lymphazurin blue injection, biopsy of deep left axillary node in situ counts over 600 with Neoprobe. Once the node was removed, no counts were over 600. Bed count after noted removal less than 5. 3. Injection of Lymphazurin blue for sentinel node identification in the lateral areolar border. ANESTHESIA: General, local none. DRAINS: Two #19 Gold KIRT drains. Of note, the patient had a large left breast cancer, upper outer quadrant, retroareolar upper outer quadrant, about 4 cm. She had small breast. She is on dialysis. She is 88 years old. Preoperative discussion with Oncology revealed the best course of action would be a left mastectomy and sentinel node biopsy in this scenario. The patient agreed. HER-2 negative. FL receptor positive, estrogen receptor positive. Preoperatively seen by Dr. Storm. DESCRIPTION OF PROCEDURE: The patient was taken to the operating room identified a left axillary node. Under general anesthesia, left breast, chest, axilla, arm prepared with ChloraPrep and draped in routine fashion. An incision was made elliptically for en bloc resection of the nipple areolar complex, underlying tumor mass, upper outer quadrant, upper outer quadrant areola, retroareolar, and carried down to skin and subcutaneous tissue with the plasma blade. Flaps dissected free circumferentially, laterally to the latissimus, inferior to abdominal muscular, superiorly to the clavicle, medially to the sternum, dissecting the specimen, lateral dissection to the latissimus dorsi and then the long thoracic thoracodorsal nerves identified, dissected free, mastectomy specimen dissected free. A large node approximately 2 cm noted in palpating the axilla, blue with Lymphazurin injection and Neoprobe counts as described above, dissected free, excised. Touch prep revealed negative. Mastectomy carried out freeing the breast specimen from the pectoralis muscle between the pectoralis minor and major muscles, Vivian nodes for a simple mastectomy, submitting to pathology with axilla labeled with a silk suture. Good hemostasis noted with the plasma blade. Wound was irrigated with water. Two #19 Gold KIRT drains placed inferiorly, secured with 3-0 nylon suture. Sterile dressing applied. As all counts were correct, subcutaneous tissue was approximated with 3-0 Monocryl, skin with shun. Sterile dressing applied. Job ID: [id number]
--- NOTE | 2019-05-20 18:42 | EKG ---
Test Reason : PREOP Blood Pressure : / mmHG Vent. Rate : 067 BPM Atrial Rate : 067 BPM P-R Int : 196 ms QRS Dur : 090 ms QT Int : 434 ms P-R-T Axes : 070 013 060 degrees QTc Int : 458 ms Normal sinus rhythm Possible Inferior infarct , age undetermined Possible Anterior infarct (cited on or before 07-SEP-2013) Abnormal ECG When compared with ECG of 14-NOV-2014 13:04, No significant change was found Confirmed by EMMANUEL CASTANEDA, SJohn ([id number]) on 05/20/2019 6:41:55 PM Referred By: JOSE Confirmed By:DR. Carlos BENITEZ MD
== END 2019-05-15 13:55 | disposition home or self-care (01) ==
LOC: SDC 07:07
PROVIDERS: ATTEND Specialist
PROC: 0HTU0ZZ Resection of Left Breast, Open Approach (ICD-10-PCS; principal; 2019-05-15)
PROC: 07B60ZX Excision of Left Axillary Lymphatic, Open Approach, Diagnostic (ICD-10-PCS; 2019-05-15)
DX: C50.412 Malignant neoplasm of upper-outer quadrant of left female breast (principal); C77.3 Secondary and unspecified malignant neoplasm of axilla and upper limb lymph nodes; I12.0 Hypertensive chronic kidney disease with stage 5 chronic kidney disease or end stage renal disease; N18.6 End stage renal disease; E78.5 Hyperlipidemia, unspecified; K21.9 Gastro-esophageal reflux disease without esophagitis; M19.042 Primary osteoarthritis, left hand; M19.041 Primary osteoarthritis, right hand; Z17.0 Estrogen receptor positive status [ER+]; Z79.899 Other long term (current) drug therapy; Z88.6 Allergy status to analgesic agent; Z88.8 Allergy status to other drugs, medicaments and biological substances; Z90.5 Acquired absence of kidney; Z99.2 Dependence on renal dialysis
CPT/HCPCS: 19303; 38525; 38900; 71045; 78195; 80048; 85025; 88307; 88309; 88333; 88341; 88342; 93005; A9541; Q9968; 36415; 93010; J0690; J1100; J1885; J2001; J2405; J2704; J2765; J3010; S0020; S0028